=== PATIENT | male | born 1945 | race Caucasian/White ===

== ENCOUNTER 2024-04-17 15:30 | Emergency (ER) | payer MEDICARE, MEDICAID ==
[~2024-04-17] VITALS: Ht 165.1 cm; Wt 82.0 kg
[2024-04-17 15:48] VITALS: O2SAT 98
[2024-04-17] MEDS: LIDOCAINE HCL/PF 1% 10 MG/ML 5ML VIAL INFIL ONE (18:44)
[2024-04-17] MEDS: BACITRACIN ZINC OINT UDPKT TOP ONE (18:44)
[2024-04-17] MEDS ORDERED: SULF1TAB48 MT (19:25)
[2024-04-17 19:42] VITALS: BP 146/84; PULSE 80; RESP 19; TEMP 36.8; O2SAT 100
== END 2024-04-17 19:43 | disposition home or self-care (01) ==
LOC: ER 15:30
DX: L02.31 Cutaneous abscess of buttock (principal); E11.9 Type 2 diabetes mellitus without complications; F02.80 Dementia in other diseases classified elsewhere, unspecified severity, without behavioral disturbance, psychotic disturbance, mood disturbance, and anxiety; N40.0 Benign prostatic hyperplasia without lower urinary tract symptoms; G30.9 Alzheimer's disease, unspecified; Z79.899 Other long term (current) drug therapy
CPT/HCPCS: 10060; 99282; J2003

== ENCOUNTER 2024-04-19 14:03 | Emergency (ER) | payer MEDICARE, MEDICAID ==
[~2024-04-19] VITALS: Ht 162.6 cm; Wt 74.0 kg
[~2024-04-19 14:03] MED LIST: SULF1TAB48 MT
[2024-04-19 14:40] VITALS: O2SAT 98
[2024-04-19 15:50] VITALS: BP 120/72; PULSE 82; RESP 16; TEMP 36.9; O2SAT 98
== END 2024-04-19 15:50 | disposition home or self-care (01) ==
LOC: ER 14:03
DX: E11.9 Type 2 diabetes mellitus without complications (principal); Z48.00 Encounter for change or removal of nonsurgical wound dressing; F03.90 Unspecified dementia, unspecified severity, without behavioral disturbance, psychotic disturbance, mood disturbance, and anxiety
CPT/HCPCS: 99281

== ENCOUNTER 2024-04-23 20:09 | Emergency (ER) | payer MEDICARE, MEDICAID ==
[~2024-04-23] VITALS: Ht 162.6 cm; Wt 75.0 kg
[2024-04-23 20:35] VITALS: O2SAT 97
[2024-04-24 02:10] VITALS: BP 142/74; PULSE 74; RESP 68; TEMP 36.7; O2SAT 99
== END 2024-04-24 03:40 | disposition home or self-care (01) ==
LOC: ER 20:09
DX: Z48.817 Encounter for surgical aftercare following surgery on the skin and subcutaneous tissue (principal); F03.90 Unspecified dementia, unspecified severity, without behavioral disturbance, psychotic disturbance, mood disturbance, and anxiety; E11.9 Type 2 diabetes mellitus without complications; Z98.890 Other specified postprocedural states
CPT/HCPCS: 99281